=== PATIENT | female | born 1990 | race Caucasian/White ===

== ENCOUNTER 2024-05-30 15:48 | Emergency (ER) | payer OTHER, SELFPAY ==
[2024-05-30 15:59] VITALS: BP 117/80; PULSE 80; RESP 18; TEMP 37.3; O2SAT 98; BMI 19.7
[2024-05-30 17:14] LABS: Appearance Urine Clear (Clear); Bilirubin Urine Negative (Negative); Blood Urine Negative (Negative); Color Urine Yellow (Yellow); Glucose Urine Negative (Negative); Ketones Urine Negative (Negative); Leukocyte Esterase Urine Negative (Negative); Nitrite Urine Negative (Negative); Protein Urine Negative (Negative); Specific Gravity Urine 1.015 (1.000-1.030); Urobilinogen Urine 0.2 (0.2-1.0); pH Urine 8.5 (5.0-8.5)
[2024-05-30 17:16] LABS: Ur HCG Qualitative* Negative (Negative)
[2024-05-30 17:30] LABS: Bacteria Urine Few; RBC Urine 0-2 (0-2); Squamous Epithelial Cell Urine Few (None-Few)
[2024-05-30] MEDS: 0.9 % SODIUM CHLORIDE 1000 ml 1,000 ML IV (17:30)
[2024-05-30 17:42] LABS: Lactate* 1.1 mmol/L (0.5-1.9)
--- NOTE | 2024-05-30 18:11 | ED_ITS ---
HPI - General Adult General Chief complaint: Overdose Stated complaint: lithium toxicity Time Seen by Provider: 05/30/24 16:44 Source: patient Mode of arrival: ambulatory Limitations: no limitations History of Present Illness HPI narrative: Patient is a 34-year-old female coming in today concerned about lithium toxicity. The patient states that her lithium dose was increased from 600 mg daily to 900 mg daily on May 25. On May 27 she woke up and did not feel well and started vomiting. She states that she vomited pretty consistently all throughout May 27 and . She denies any diarrhea, fevers or chills. She states that she vomited only 1 time on the and 1 time today. So her vomiting is getting better. Her energy is also getting better. However she complains of feeling that her legs from below the knees bilaterally feel numb. She denies falling, feeling off balance. She denies tripping on anything. She did discuss her symptoms with her psychiatrist recommended she come to the ER fo r evaluation for possible lithium toxicity. Patient denies headache, slurred speech, confusion, agitation or increased anxiety. She denies tremors. She also states that it is a amount of time she has developed some suprapubic pressure and dysuria. No increased urinary frequency urgency, no blood in her urine. Related Data Home Medications ?Medication ?Instructions ?Recorded ?Confirmed lithium carbonate 300 mg tablet 300 mg PO TID 05/30/24 05/30/24 seraqual 400 mg PO DAILY 05/30/24 05/30/24 seraquel extended release 150 mg PO .am 05/30/24 05/30/24 trazadone 100 mg PO HS 05/30/24 05/30/24 vivance 40 mg PO .am 05/30/24 05/30/24 Allergies Allergy/AdvReac Type Severity Reaction Status Date / Time Penicillins Allergy Severe throat Verified 05/30/24 16:06 swelling Review of Systems Status of ROS: Reports: 10 or more systems reviewed and unremarkable except as noted in History and below [facility] Social History Smoking Status: Never smoker Do you use any of these nicotine containing products: None Second hand tobacco smoke exposure: No How often do you have a drink containing alcohol: never AUDIT-C Alcohol total score: 0 Non-prescribed substance use: denies use service: No Exam Narrative: Exam Narrative: Well-nourished well-developed patient in no acute distress. Alert and oriented. Answers questions appropriately. Mood and affect are appropriate. Thoughts are goal oriented and rational. No tangential or magical thinking noted. Patient speaks in full sentences without needing to catch her breath. HEENT: Normocephalic atraumatic. Pupils are equally round reactive to light. Extraocular muscles are intact. Conjunctivae are moist without any icterus noted. Moist mucous membranes. Posterior pharynx is normal. Neck is soft without any lymphadenopathy or thyromegaly. Cardiovascular: Heart is regular rate and rhythm S1 and S2 are present without any murmurs. Lungs: Clear to auscultation bilaterally no wheezes rhonchi or rales are appreciated. Patient takes deep breaths without any discomfort. Abdomen: Soft and nontender nondistended with normal bowel sounds. No guarding or rebound. Extremities: Bilateral lower extremities are without edema. Normal DP and PT pulses. Skin: Well perfused without any obvious rashes. Strength is 5/5 of the upper and lower extremities. Reflexes are 2+ and symmetric at the knees. Romberg sign is negative. Cranial nerves 3-12 are normal. There is no nystagmus either horizontally or vertically. Gait is normal. Const: Vital Signs, click to edit/add: Vital Signs - 24 hr 05/30/24 15:59 Temperature 99.2 F Pulse Rate [Pulse Oximeter] 80 Respiratory Rate 18 Blood Pressure [Ri ght Upper Arm] 117/80 Pulse Oximetry 98 Oxygen Delivery Me thod Room Air Course Course ED Course: Lab work was unremarkable. IV was established patient received a L of normal saline. Patient had no nausea vomiting while she was here. We were unable to check a lithium level as is a send out lab and we will have results until tomorrow which will not be helpful at this time. Discussed taking 600 mg of lithium tonight, patient states that she does not want to do this as she is very concerned about her mood stability. I asked her to discuss this with her psychiatrist. Differential diagnosis includes gastroenteritis, lithium toxicity- although this is less likely given the fact the patient has improved over the last 48 hours despite continuing her dose of lithium. Vital Signs Vital signs: Initial Vital Signs Temperature 99.2 F 05/30/24 15:59 Temperature Source Temporal Artery Scan 05/30/24 15:59 Pulse Rate 80 05/30/24 15:59 Respiratory Rate 18 05/30/24 15:59 Blood Pressure 117/80 05/30/24 15:59 Blood Pressure Mean 92 05/30/24 15:59 Blood Pressure Position Sitting 05/30/24 15:59 Pulse Oximetry 98 05/30/24 15:59 Oxygen Delivery Method Room Air 05/30/24 15:59 Vital Signs Temperature 99.2 F 05/30/24 15:59 Pulse Rate 80 05/30/24 15:59 Respiratory Rate 18 05/30/24 15:59 Blood Pressure 117/80 05/30/24 15:59 Pulse Oximetry 98 05/30/24 15:59 Oxygen Delivery Method Room Air 05/30/24 15:59 Temperature 99.2 F 05/30/24 15:59 Pulse Rate 80 05/30/24 15:59 Respiratory Rate 18 05/30/24 15:59 Blood Pressure 117/80 05/30/24 15:59 Pulse Oximetry 98 05/30/24 15:59 Oxygen Delivery Method Room Air 05/30/24 15:59 Medications Administered Medications: Discontinued Medications Generic Name Dose Route Start Last Admin Trade Name Freq PRN Reason Stop Dose Admin Sodium Chloride 1,000 mls @ 1,000 mls/hr 05/30/24 17:00 05/30/24 18:27 0.9 % Sodium Chloride 1000 Ml IV 05/30/24 17:59 Infused .Q1H ABRAHAM Infusion Medical Decision Making MDM Narrative Medical decision making narrative: 34-year-old male with vomiting, improving. Concerned about lithium toxicity. Patient will follow-up with her psychiatrist. She does have an appointment for Thursday already to check lithium levels. Lab Data Lab results reviewed: Yes I reviewed the patient's lab results Labs: Lab Results 05/30/24 05/30/24 05/30/24 Range/Units 16:50 17:23 17:23 WBC 11.06 H (4.50-11.00) K/uL RBC 4.54 (4.00-5.20) m/uL Hgb 12.8 (12.0-16.0) gm/dL Hct 39.3 (33.0-51.0) % MCV 87 (80-100) fL MCH 28 (26-34) pg MCHC 33 (32-36) gm/dL RDW Coeff of [place] 12.6 (11.5-15.5) % Plt Count 265 (140-440) K/uL Neut % (Auto) 74.2 H (42.0-72.0) % Lymph % (Auto) 19.7 L (20-44) % [place] % (Auto) 3.9 (0.0-11.0) % Eos % (Auto) 1.5 (0.0-7.0) % Baso % (Auto) 0.6 (0.0-3.0) % Neut # (Auto) 8.20 H (1.7-7.0) K/uL Lymph # (Auto) 2.20 (0.90-2.90) K/uL [place] # (Auto) 0.40 (0.00-0.90) K/UL Eos # (Auto) 0.20 (0.00-0.50) K/uL Baso # (Auto) 0.10 (0.00-0.30) K/uL Abs Immat Gran (auto) 0.00 (0.00-0.30) K/uL Imm/Tot Granulo (auto) 0.1 % Sodium 137 (135-149) mmol/L Potassium 3.7 (3.6-5.1) mmol/L Chloride 107 (96-114) mmol/L Carbon Dioxide 21 (20-32) mmol/L Anion Gap 9 (7-15) mEq/L BUN 9 (5-24) mg/dL Creatinine 0.7 (0.5-1.5) mg/dL Estimated Creat Clear 93.25 Estimated GFR 116 ml/min Glucose 85 (60-115) mg/dL Lactate 1.1 (0.5-1.9) mmol/L Calcium 10.6 (8.4-10.6) mg/dL Total Bilirubin 0.3 Cancelled (0.1-1.5) mg/dL Direct Bilirubin 0.1 (0.0-0.5) mg/dL AST (12-35) U/L ALT (4-35) U/L Alkaline Phosphatase (40-150) U/L Total Protein (6.0-8.3) g/dL Albumin (3.3-5.0) g/dL Urine Color Yellow (Yellow) Urine Appearance Clear (Clear) Urine pH 8.5 (5.0-8.5) Ur Specific [place] 1.015 (1.000-1.030) Urine Protein Negative (Negative) Urine Glucose (UA) Negative (Negative) Urine Ketones Negative (Negative) Urine Blood Negative (Negative) Urine Nitrite Negative (Negative) Urine Bilirubin Negative (Negative) Urine Urobilinogen 0.2 (0.2-1.0) Ur Leukocyte Esterase Negative (Negative) Urine RBC 0-2 (0-2) Urine WBC 2-5 (0-5) Ur Squamous Epith Cells Few (None-Few) Urine Bacteria Few A (None) Urine HCG, Qual Negative (Negative) 05/30/24 05/30/24 05/30/24 Range/Units 17:23 17:23 17:23 WBC (4.50-11.00) K/uL RBC (4.00-5.20) m/uL Hgb (12.0-16.0) gm/dL Hct (33.0-51.0) % MCV (80-100) fL MCH (26-34) pg MCHC (32-36) gm/dL RDW Coeff of Halle (11.5-15.5) % Plt Count (140-440) K/uL Neut % (Auto) (42.0-72.0) % Lymph % (Auto) (20-44) % [place] % (Auto) (0.0-11.0) % Eos % (Auto) (0.0-7.0) % Baso % (Auto) (0.0-3.0) % Neut # (Auto) (1.7-7.0) K/uL Lymph # (Auto) (0.90-2.90) K/uL [place] # (Auto) (0.00-0.90) K/UL Eos # (Auto) (0.00-0.50) K/uL Baso # (Auto) (0.00-0.30) K/uL Abs Immat Gran (auto) (0.00-0.30) K/uL Imm/Tot Granulo (auto) % Sodium (135-149) mmol/L Potassium (3.6-5.1) mmol/L Chloride (96-114) mmol/L Carbon Dioxide (20-32) mmol/L Anion Gap (7-15) mEq/L BUN (5-24) mg/dL Creatinine (0.5-1.5) mg/dL Estimated Creat Clear Estimated GFR ml/min Glucose (60-115) mg/dL Lactate (0.5-1.9) mmol/L Calcium (8.4-10.6) mg/dL Total Bilirubin (0.1-1.5) mg/dL Direct Bilirubin Cancelled (0.0-0.5) mg/dL AST 21 Cancelled (12-35) U/L ALT 16 Cancelled (4-35) U/L Alkaline Phosphatase 62 (40-150) U/L Total Protein (6.0-8.3) g/dL Albumin (3.3-5.0) g/dL Urine Color (Yellow) Urine Appearance (Clear) Urine pH (5.0-8.5) Ur Specific [place] (1.000-1.030) Urine Protein (Negative) Urine Glucose (UA) (Negative) Urine Ketones (Negative) Urine Blood (Negative) Urine Nitrite (Negative) Urine Bilirubin (Negative) Urine Urobilinogen (0.2-1.0) Ur Leukocyte Esterase (Negative) Urine RBC (0-2) Urine WBC (0-5) Ur Squamous Epith Cells (None-Few) Urine Bacteria (None) Urine HCG, Qual (Negative) 05/30/24 05/30/24 05/30/24 Range/Units 17:23 17:23 17:23 WBC (4.50-11.00) K/uL RBC (4.00-5.20) m/uL Hgb (12.0-16.0) gm/dL Hct (33.0-51.0) % MCV (80-100) fL MCH (26-34) pg MCHC (32-36) gm/dL RDW Coeff of Halle (11.5-15.5) % Plt Count (140-440) K/uL Neut % (Auto) (42.0-72.0) % Lymph % (Auto) (20-44) % [place] % (Auto) (0.0-11.0) % Eos % (Auto) (0.0-7.0) % Baso % (Auto) (0.0-3.0) % Neut # (Auto) (1.7-7.0) K/uL Lymph # (Auto) (0.90-2.90) K/uL [place] # (Auto) (0.00-0.90) K/UL Eos # (Auto) (0.00-0.50) K/uL Baso # (Auto) (0.00-0.30) K/uL Abs Immat Gran (auto) (0.00-0.30) K/uL Imm/Tot Granulo (auto) % Sodium (135-149) mmol/L Potassium (3.6-5.1) mmol/L Chloride (96-114) mmol/L Carbon Dioxide (20-32) mmol/L Anion Gap (7-15) mEq/L BUN (5-24) mg/dL Creatinine (0.5-1.5) mg/dL Estimated Creat Clear Estimated GFR ml/min Glucose (60-115) mg/dL Lactate (0.5-1.9) mmol/L Calcium (8.4-10.6) mg/dL Total Bilirubin (0.1-1.5) mg/dL Direct Bilirubin (0.0-0.5) mg/dL AST (12-35) U/L ALT (4-35) U/L Alkaline Phosphatase Cancelled (40-150) U/L Total Protein 7.2 Cancelled (6.0-8.3) g/dL Albumin 4.9 Cancelled (3.3-5.0) g/dL Urine Color (Yellow) Urine Appearance (Clear) Urine pH (5.0-8.5) Ur Specific [place] (1.000-1.030) Urine Protein (Negative) Urine Glucose (UA) (Negative) Urine Ketones (Negative) Urine Blood (Negative) Urine Nitrite (Negative) Urine Bilirubin (Negative) Urine Urobilinogen (0.2-1.0) Ur Leukocyte Esterase (Negative) Urine RBC (0-2) Urine WBC (0-5) Ur Squamous Epith Cells (None-Few) Urine Bacteria (None) Urine HCG, Qual (Negative) Discharge Plan Discharge Clinical Impression: Vomiting Patient Disposition: Home, Self-Care Condition: Stable Additional Instructions: Lab work was unremarkable today. We were unable to check lithium levels. Recommend you follow-up with your psychiatrist to discuss next steps. Prescriptions: No Action lithium carbonate 300 mg tablet 300 mg PO TID seraqual 400 mg PO DAILY seraquel extended release 150 mg PO .am trazadone 100 mg PO HS vivance 40 mg PO .am Follow Up/Referrals: Provider,Not a Local [Primary Care Provider] - Stand Alone Forms: Attivio Info Instructions
[2024-05-30 18:25] LABS: Albumin* 4.9 g/dL (3.3-5.0); Chloride* 107 mmol/L (96-114); Sodium* 137 mmol/L (135-149)
[2024-05-30 18:26] LABS: Potassium* 3.7 mmol/L (3.6-5.1)
[2024-05-30 18:28] LABS: Alanine Aminotransferase* 16 U/L (4-35); Alkaline Phosphatase* 62 U/L (40-150); Anion Gap 9 mEq/L (7-15); Aspartate Amino Transferase* 21 U/L (12-35); Bilirubin Direct* 0.1 mg/dL (0.0-0.5); Bilirubin Total* 0.3 mg/dL (0.1-1.5); Blood Urea Nitrogen* 9 mg/dL (5-24); Carbon Dioxide* 21 mmol/L (20-32); Creatinine* 0.7 mg/dL (0.5-1.5); Est. Creatinine Clearance* 93.25; Estimated Glomerular Filt Rate 116 ml/min; Glucose* 85 mg/dL (60-115); Total Protein* 7.2 g/dL (6.0-8.3)
[2024-05-30 18:29] LABS: Calcium* 10.6 mg/dL (8.4-10.6)
[2024-05-30 18:49] LABS: Basophils Percent Auto 0.6 % (0.0-3.0); Eosinophils Percent Auto 1.5 % (0.0-7.0); Hematocrit 39.3 % (33.0-51.0); Hemoglobin* 12.8 gm/dL (12.0-16.0); Immature Granulocytes Pct Auto 0.1 %; Lymphocytes Percent Auto 19.7 % (20-44); Mean Corpuscular HGB Conc 33 gm/dL (32-36); Mean Corpuscular Hemoglobin 28 pg (26-34); Mean Corpuscular Volume 87 fL (80-100); Monocytes Percent Auto 3.9 % (0.0-11.0); Neutrophils Percent Auto 74.2 % (42.0-72.0); Platelet Count* 265 K/uL (140-440); RDW Coefficient of Variation % 12.6 % (11.5-15.5); Red Blood Count 4.54 m/uL (4.00-5.20); White Blood Count* 11.06 K/uL (4.50-11.00)
[2024-05-30 18:54] LABS: Slide Review Reflex No
--- NOTE | 2024-06-01 10:32 | ED.NURSE ---
Pt's mental health clinic [facility] called inquiring about [place] lab values related to patient's visit on Wednesday 05/30. Caller stated pt was still symptomatic and they had ongoing concern for [place] toxicity and they were seeking the results from pt's [place] labs that would have been drawn here. Upon review of pt chart, [place] levels were not checked here per MD Dictation. MD Dictation regarding lithium levels not being drawn during visit here was reviewed with the caller.
== END 2024-05-30 19:10 | disposition home or self-care (01) ==
PROVIDERS: Emergency Provider Family Medicine
DX: R11.10 Vomiting, unspecified (principal); Z51.81 Encounter for therapeutic drug level monitoring
CPT/HCPCS: 36415; 80048; 80076; 81001; 81025; 83605; 85025; 87086; 99283; 99284; J7030